=== PATIENT | female | born 1975 | race Caucasian/White ===

== ENCOUNTER 2024-02-27 13:21 | Emergency (ER) | payer OTHER ==
[~2024-02-27] VITALS: Ht 160 cm; Wt 70.8 kg
[~2024-02-27 13:21] MED LIST: BUPROPION HCL200 MG PO; CARAFATE1 GM PO; CLONIDINE HCL0.2 MG PO; ESOMEPRAZOLE MA20 MG PO; HYDROCODON-ACE1 EA10 PO; METOCLOPRAMIDE10 MG PO; ONDANSETRON ODT8 MG PO; PANTOPRAZOLE SO40 MG PO; PROMETHAZINE HC25 M1 PO; PROTONIX40 MG PO; REGLAN10 MG PO; SUCRALFATE1 GM PO
[2024-02-27] MEDS ORDERED: PROPRANOLOL HCL20 MG PO (14:52)
[2024-02-27] MEDS ORDERED: BUPROPION HCL100 M1 PO (14:52)
[2024-02-27] MEDS ORDERED: CLONIDINE HCL0.2 MG PO (14:52)
[2024-02-27] MEDS ORDERED: HYDROXYZINE HCL25 MG PO (14:52)
[2024-02-27 15:06] VITALS: BP 153/82
== END 2024-02-27 15:07 | disposition home or self-care (01) ==
LOC: ED 13:21
DX: F90.9 Attention-deficit hyperactivity disorder, unspecified type (principal); Z76.0 Encounter for issue of repeat prescription; F41.9 Anxiety disorder, unspecified; I10 Essential (primary) hypertension; Z79.899 Other long term (current) drug therapy
CPT/HCPCS: 99282